=== PATIENT | female | born 1965 | race Caucasian/White ===

== ENCOUNTER 2019-10-17 22:28 | Emergency (ER) | payer OTHER ==
[~2019-10-17] VITALS: Ht 165.1 cm; Wt 102.2 kg
[2019-10-17 22:53] VITALS: BP 169/94
[2019-10-17] MEDS ORDERED: HYDROcodone/APAP 5/325 TABLET PO STA (23:08)
[2019-10-17] MEDS ORDERED: HYDROcodone/APAP 5/325 TABLET ONE (23:12)
--- NOTE | 2019-10-17 23:37 | NUR ---
PT SITTING UP IN BED. PER PT PAIN IS BETTER 3/10
[2019-10-18] MEDS ORDERED: HYDROcodone/APAP 5/325 TABLET PO STA (00:19)
[2019-10-18] MEDS ORDERED: HYDROcodone/APAP 5/325 TABLET ONE (00:21)
== END 2019-10-18 00:53 ==
LOC: ED 10-18 00:41
DX: S42.402A Unspecified fracture of lower end of left humerus, initial encounter for closed fracture (principal); I10 Essential (primary) hypertension; E11.9 Type 2 diabetes mellitus without complications; W01.0XXA Fall on same level from slipping, tripping and stumbling without subsequent striking against object, initial encounter; Y93.89 Activity, other specified; Y92.410 Unspecified street and highway as the place of occurrence of the external cause; Y99.8 Other external cause status
CPT/HCPCS: 29105; 99283

== ENCOUNTER 2020-05-09 19:42 | Emergency (ER) | payer OTHER ==
[~2020-05-09] VITALS: Ht 165.1 cm; Wt 94.2 kg
[2020-05-09 19:54] VITALS: BP 151/95
[2020-05-09] MEDS ORDERED: SILVER SULF. CRM 1% , 25GM ONE (21:38)
[2020-05-09] MEDS ORDERED: SILVER SULF. CRM 1% , 25GM TP ONE (22:00)
== END 2020-05-09 22:39 | disposition home or self-care (01) ==
LOC: ED 22:30
DX: T23.151A Burn of first degree of right palm, initial encounter (principal); T31.0 Burns involving less than 10% of body surface; E11.9 Type 2 diabetes mellitus without complications; I10 Essential (primary) hypertension; X19.XXXA Contact with other heat and hot substances, initial encounter; Y93.89 Activity, other specified; Y92.89 Other specified places as the place of occurrence of the external cause; Y99.8 Other external cause status
CPT/HCPCS: 16000; 99282

== ENCOUNTER → 2020-09-14 | Outpatient (CLI) | payer OTHER ==
[~2020-09-14] MED LIST: ASPI81TA45 PO; ATEN50TA41 PO; ATOR20TA37 PO; CALC1CAP8 PO; DIPH25TA65 PO; ENAL10TA9 PO; GLUC-121 PO; METF-754 PO; MV-M1TAB54 PO; actos PO; apple cider vinegar PO; coq10 PO
[2020-09-14 12:30] LABS: MEAN CORPUSCULAR HEMOGLOBIN 29.4 pg (27.0-34.8); MEAN CORPUSCULAR HGB CONC 32.9 g/dL (32.4-35.8); MEAN PLATELET VOLUME 7.8 fL (7.4-10.4); PLATELET COUNT 446 x10^3/uL (130-400); RED BLOOD COUNT 4.67 x10^6/uL (3.82-5.3); RED CELL DISTRIBUTION WIDTH 14.3 % (9.6-15.2)
[2020-09-14 12:32] LABS: INTERNATIONAL NORMALIZED RATIO 1.04 (0.93-1.1)
[2020-09-14 12:33] LABS: MICROSCOPIC INDICATED
[2020-09-14 12:46] LABS: ALBUMIN 4.5 g/dL (3.4-5.0); ANION GAP 12 mmol/L (5-15); CALCIUM 9.9 mg/dL (8.5-10.1); CHLORIDE 108 mmol/L (98-107)
[2020-09-14 12:52] LABS: ALANINE AMINOTRANSFERASE 22 U/L (12-78); ALKALINE PHOSPHATASE 94 U/L (45-117); BILIRUBIN,TOTAL 0.4 mg/dL (0.2-1.0); CREATININE 0.83 mg/dL (0.55-1.02); TOTAL PROTEIN 8.1 g/dL (6.4-8.2)
[2020-09-14 13:18] LABS: MD YES
[2020-09-14 13:20] LABS: <PLATELET ESTIMATE> INCREASED; <PLT MORPHOLOGY> NORMAL PLT MORPH; <RBC MORPHOLOGY> NORMAL; BASOS#(MANUAL) 0.09 x10^3/uL (0-0.1); BASOS% (MANUAL) 1 % (0-1); LYMPH#(MANUAL) 1.87 x10^3/uL (1-3.4); LYMPHS% (MANUAL) 21 % (22-44); MONOS#(MANUAL) 0.62 x10^3/uL (0.3-2.7); MONOS% (MANUAL) 7 % (2-9); SEG#(MANUAL) 6.32 x10^3/uL (1.8-6.8); SEGS% (MANUAL) 71 % (42-75)
== END | disposition home or self-care (01) ==
LOC: STAR 11:09
PROVIDERS: ATTEND Student in an Organized Health Care Education/Training Program
DX: Z01.818 Encounter for other preprocedural examination (principal); N28.89 Other specified disorders of kidney and ureter; R94.31 Abnormal electrocardiogram [ECG] [EKG]
CPT/HCPCS: 36415; 80053; 81001; 83036; 85025; 85610; 87077; 87086; 93005

== ENCOUNTER 2020-09-22 07:45 | Observation (INO) | payer OTHER ==
[~2020-09-22] VITALS: Ht 165.1 cm; Wt 89.8 kg
[2020-09-22 08:59] VITALS: BP 151/81
[2020-09-22] MEDS ORDERED: CHLORHEXIDINE 15 ML UDC MM ONE (09:00)
[2020-09-22] MEDS ORDERED: LACTATED RINGERS 1,000 ML IV SCH (09:00)
[2020-09-22] MEDS ORDERED: FENTANYL PF 250 MCG/5ML ONE (11:20)
[2020-09-22] MEDS ORDERED: NEOSTIGMINE 1 MG/ML, 10ML ONE (11:27)
[2020-09-22] MEDS ORDERED: CEFAZOLIN 1,000 MG ONE (11:27)
[2020-09-22] MEDS ORDERED: EPHEDRINE 50 MG/ML, 1ML ONE (11:27)
[2020-09-22] MEDS ORDERED: GLYCOPYRROLATE 0.2MG/1ML, 5ML ONE ×2 (11:27)
[2020-09-22] MEDS ORDERED: PHENYLEPHRINE 10 MG/ML ONE (11:27)
[2020-09-22] MEDS ORDERED: DEXAMETHASONE 4 MG/ML, 1ML ONE (11:27)
[2020-09-22] MEDS ORDERED: SUCCINYLCHOLINE 20 MG/ML, 10ML ONE (11:27)
[2020-09-22] MEDS ORDERED: ROCURONIUM 10 MG/ML,10ML ONE (11:27)
[2020-09-22] MEDS ORDERED: ONDANSETRON 2MG/ML, 2ML ONE (11:27)
[2020-09-22] MEDS ORDERED: PROPOFOL 10 MG/ML, 20ML ONE (11:27)
[2020-09-22] MEDS ORDERED: BUPIVACAINE/PF-EPI 0.25% 1:200K INFIL ONE (12:07)
[2020-09-22] MEDS ORDERED: LABETALOL 5MG/ML, 20ML IV PRN (13:00)
[2020-09-22] MEDS ORDERED: OXYcodone 5 MG/5 ML ORAL.SOL UDC PO PRN ×2 (13:00→15:00)
[2020-09-22] MEDS ORDERED: ONDANSETRON 2MG/ML, 2ML IVPush PRN (13:00)
[2020-09-22] MEDS ORDERED: ACETAMINOPHEN 325 MG TABLET PO PRN (13:00)
[2020-09-22] MEDS ORDERED: hydrALAzine 20 MG/ML, 1ML IV PRN (13:00)
[2020-09-22] MEDS ORDERED: FENTANYL PF 100 MCG/2ML ONE ×3 (13:44→15:47)
[2020-09-22] MEDS ORDERED: ONDANSETRON 2MG/ML, 2ML IV PRN (15:00)
[2020-09-22] MEDS ORDERED: HEPARIN 5,000 UNITS/ML, 1ML SQ SCH (15:00)
[2020-09-22] MEDS: KETOROLAC 30 MG/1 ML IVPush SCH ×2 (15:00→21:45)
[2020-09-22] MEDS ORDERED: HYDROmorphone 1 MG/ML, 1ML INJ IV PRN (15:00)
[2020-09-22] MEDS: ACETAMINOPHEN 325 MG TABLET PO SCH ×2 (15:00→21:45)
[2020-09-22] MEDS ORDERED: OXYcodone 5 MG/5 ML ORAL.SOL UDC ONE (15:05)
[2020-09-22] MEDS ORDERED: HYDROmorphone 1 MG/ML, 1ML INJ ONE ×2 (15:05→15:47)
[2020-09-22] MEDS: FENTANYL PF 100 MCG/2ML IV PRN ×3 (15:06→15:50)
[2020-09-22] MEDS: HYDROmorphone 1 MG/ML, 1ML INJ IVPush PRN ×4 (15:18→16:00)
[2020-09-22 19:05] VITALS: BP 116/69
[2020-09-22 19:16] LABS: ALBUMIN 3.9 g/dL (3.4-5.0); ANION GAP 6 mmol/L (5-15); CALCIUM 8.8 mg/dL (8.5-10.1); CHLORIDE 108 mmol/L (98-107)
[2020-09-22 19:17] LABS: CREATININE 0.85 mg/dL (0.55-1.02)
[2020-09-22] MEDS: SODIUM CHLORIDE 0.9% 1,000 ML IV SCH (21:45)
[2020-09-22] MEDS: DOCUSATE 100 MG CAPSULE PO SCH (21:45)
[2020-09-23 00:09] VITALS: BP 108/63
[2020-09-23] MEDS: KETOROLAC 30 MG/1 ML IVPush SCH ×3 (04:06→15:40)
[2020-09-23] MEDS: ACETAMINOPHEN 325 MG TABLET PO SCH ×3 (04:07→15:29)
[2020-09-23 05:09] LABS: CHLORIDE 108 mmol/L (98-107)
[2020-09-23 05:14] LABS: ANION GAP 6 mmol/L (5-15); CALCIUM 8.8 mg/dL (8.5-10.1); CREATININE 0.72 mg/dL (0.55-1.02)
[2020-09-23 07:24] VITALS: BP 132/85
[2020-09-23] MEDS ORDERED: HEPARIN 5,000 UNITS/ML, 1ML SQ SCH (08:00)
[2020-09-23] MEDS ORDERED: POLYETHYLENE GLYCOL 17 GM PACKET PO SCH (09:00)
[2020-09-23] MEDS: DOCUSATE 100 MG CAPSULE PO SCH (09:29)
[2020-09-23] MEDS: SODIUM CHLORIDE 0.9% 1,000 ML IV SCH (09:30)
[2020-09-23 12:43] VITALS: BP 136/85
[2020-09-23] MEDS ORDERED: FLU VACC QS2020-21(6MOS UP)/PF 60MCG/0.5 ML SYR IM ONE (15:30)
== END 2020-09-23 16:20 | disposition home or self-care (01) ==
LOC: OUT 07:45 → 4NW 17:22 → OUT 18:45
PROVIDERS: ADMIT Student in an Organized Health Care Education/Training Program; ATTEND Student in an Organized Health Care Education/Training Program
DX: N28.89 Other specified disorders of kidney and ureter (principal); Z20.828 Contact with and (suspected) exposure to other viral communicable diseases; N28.1 Cyst of kidney, acquired; I10 Essential (primary) hypertension; E11.9 Type 2 diabetes mellitus without complications; E78.5 Hyperlipidemia, unspecified; E66.9 Obesity, unspecified; Z85.528 Personal history of other malignant neoplasm of kidney; Z79.84 Long term (current) use of oral hypoglycemic drugs; Z90.5 Acquired absence of kidney; Z79.899 Other long term (current) drug therapy; Z90.710 Acquired absence of both cervix and uterus; Z23 Encounter for immunization
CPT/HCPCS: 36415; 50545; 80048; 82040; 82962; 85014; 85018; 86850; 86900; 87635; 88305; 90471; 90686; 96361; 96374; 96376; 97163; C1760; G0378; J0330; J0690; J1100; J1170; J1885; J2370; J2405; J2704; J2710; J3010; J7030; J7120

== ENCOUNTER → 2020-11-03 | Outpatient (CLI) | payer OTHER | END | disposition home or self-care (01) | LOC: WOUND 08:00 | PROVIDERS: ATTEND Internal Medicine | DX: T81.32XA Disruption of internal operation (surgical) wound, not elsewhere classified, initial encounter (principal); E11.22 Type 2 diabetes mellitus with diabetic chronic kidney disease; I12.9 Hypertensive chronic kidney disease with stage 1 through stage 4 chronic kidney disease, or unspecified chronic kidney disease; N18.2 Chronic kidney disease, stage 2 (mild); E66.9 Obesity, unspecified; E78.5 Hyperlipidemia, unspecified; Z90.5 Acquired absence of kidney; Z68.32 Body mass index [BMI] 32.0-32.9, adult; Z79.84 Long term (current) use of oral hypoglycemic drugs; Z79.899 Other long term (current) drug therapy; Z90.710 Acquired absence of both cervix and uterus; Y83.8 Other surgical procedures as the cause of abnormal reaction of the patient, or of later complication, without mention of misadventure at the time of the procedure; Y92.238 Other place in hospital as the place of occurrence of the external cause | CPT/HCPCS: 97597; 99214; G0463 ==

== ENCOUNTER → 2020-11-10 | Outpatient (CLI) | payer OTHER | END | disposition home or self-care (01) | LOC: WOUND 08:31 | PROVIDERS: ATTEND Internal Medicine | DX: T81.32XD Disruption of internal operation (surgical) wound, not elsewhere classified, subsequent encounter (principal); E11.22 Type 2 diabetes mellitus with diabetic chronic kidney disease; I12.9 Hypertensive chronic kidney disease with stage 1 through stage 4 chronic kidney disease, or unspecified chronic kidney disease; N18.2 Chronic kidney disease, stage 2 (mild); E66.9 Obesity, unspecified; E78.5 Hyperlipidemia, unspecified; Z90.5 Acquired absence of kidney; Z68.32 Body mass index [BMI] 32.0-32.9, adult; Z79.84 Long term (current) use of oral hypoglycemic drugs; Z79.899 Other long term (current) drug therapy; Z90.710 Acquired absence of both cervix and uterus; Z85.528 Personal history of other malignant neoplasm of kidney; Y83.8 Other surgical procedures as the cause of abnormal reaction of the patient, or of later complication, without mention of misadventure at the time of the procedure | CPT/HCPCS: 97597 ==